=== PATIENT | female | born 1930 | race Caucasian/White ===

== ENCOUNTER → 2019-10-16 | Outpatient (CLI) | payer MEDICARE | END | disposition home or self-care (01) | LOC: SHCH 14:36 | PROVIDERS: ATTEND Internal Medicine Cardiovascular Disease | DX: I08.3 Combined rheumatic disorders of mitral, aortic and tricuspid valves (principal); R01.1 Cardiac murmur, unspecified | CPT/HCPCS: 93306 ==

== ENCOUNTER 2020-10-21 05:48 | Day surgery (SDC) | payer MEDICARE ==
[2020-10-15 09:15] LABS: BASOPHILS % (AUTO) 0.6 % (0.0-5.0); EOSINOPHILS % (AUTO) 1.9 % (0.0-8.0); HEMATOCRIT 32.6 % (36-48); LYMPHOCYTES % (AUTO) 26.9 % (21.0-51.0); MEAN CORPUSCULAR HGB CONC 30.4 g/dL (32.0-36.0); MEAN CORPUSCULAR VOLUME 78.9 fL (79-99); MONOCYTES % (AUTO) 13.3 % (3.0-13.0); PLATELET COUNT (AUTO) 352 K/uL (130-400); RED BLOOD CELL COUNT(AUTO) 4.13 MIL/uL (4.00-5.50); WHITE BLOOD COUNT (AUTO) 6.2 K/uL (4.8-10.8)
[2020-10-15 09:29] LABS: CREATININE 1.2 mg/dL (0.5-1.5)
[2020-10-15 09:32] LABS: POTASSIUM 4.7 mmol/L (3.5-5.1)
[2020-10-20 10:21] VITALS: BP 156/81
[~2020-10-21] VITALS: Ht 162.6 cm; Wt 73.8 kg
[2020-10-21] VITALS (11 sets, daily range): BP systolic 88–164; BP diastolic 53–87
[~2020-10-21 05:48] MED LIST: AEC81 PO; AMLO-258 PO; APIX5TAB PO; GABA300C PO; LOSA100T58 PO; METO-409 PO; OMEP20CA12 PO
[2020-10-21] MEDS ORDERED: ISOVUE-M 200 20 ML VIAL IT ONE (06:55)
[2020-10-21] MEDS ORDERED: PYRI100L2 PO (07:05)
[2020-10-21] MEDS ORDERED: DOCU100C33 PO (07:05)
[2020-10-21] MEDS ORDERED: PSYL0.5245 PO (07:05)
[2020-10-21] MEDS ORDERED: CALC-1158 PO (07:05)
== END 2020-10-21 12:10 | disposition home or self-care (01) ==
LOC: DAH 05:48
PROVIDERS: ATTEND Neurological Surgery
DX: M48.061 Spinal stenosis, lumbar region without neurogenic claudication (principal); Z88.0 Allergy status to penicillin; Z88.8 Allergy status to other drugs, medicaments and biological substances; Z79.01 Long term (current) use of anticoagulants; Z79.899 Other long term (current) drug therapy; Z20.828 Contact with and (suspected) exposure to other viral communicable diseases
CPT/HCPCS: 36415; 62304; 72132; 80048; 85025; 93005; A4663; A6260; C9803; Q9966; U0003